=== PATIENT | male | born 1960 | race Caucasian/White ===

== ENCOUNTER 2021-12-25 18:21 | Emergency (ER) | payer SELFPAY ==
[2021-12-25 18:32] VITALS: BP 164/86; PULSE 79; RESP 16; TEMP 36.4; O2SAT 97
--- NOTE | 2021-12-25 18:39 | ED_ITS ---
HPI - Skin/Abscess/Foreign Bdy General: Chief complaint: Skin/Abscess/Foreign Body Stated complaint: fishing hook in upper right arm Time Seen by Provider: 12/25/21 18:39 History of Present Illness: 61-year-old male patient comes in today for complaints of fishhook in the right upper arm. Incident occurred this morning patient was fishing in a tournament and was unable to come in until tonight. Patient denies any significant complaints or concerns. Review of Systems General: Reports: 10 or more systems reviewed and unremarkable except in HPI and below Skin/Breast: Reports: other (Foreign body right upper arm) Physical Exam Const: COMMON NORMALS: alert Neck/C-Spine: COMMON NORMALS: full ROM Resp: COMMON NORMALS: normal respiratory effort Cardio: COMMON NORMALS: regular rate RATE: regular rate Extremity: RIGHT UPPER EXTREMITY: Yes upper arm (Right dorsal arm foreign body visualized) Neuro: SENSORIUM/ORIENTATION: Yes alert Skin: TRAUMA: puncture (Foreign body, fishhook, right upper arm) Procedures Foreign Body Removal Site: right and upper extremity Description of foreign body: fish hook Sedation/Analgesia: none Technique: removal with forceps and incision made to facilitate removal Confirmed by:: direct visualization Complications: none Neurovascular: normal distal pulse Course Vital Signs: Vital signs: Vital Signs Temperature 97.5 F L 12/25/21 18:32 Pulse Rate 79 12/25/21 18:32 Respiratory Rate 16 12/25/21 18:32 Blood Pressure 164/86 12/25/21 18:32 Pulse Oximetry 97 12/25/21 18:32 Oxygen Delivery Me thod 12/25/21 18:32 MDM - Skin/Abscess/Foreign Bdy Medicial Decision Making 61-year-old male patient comes in today for a fishhook in the right upper arm. On exam we note a fishhook cut off to the skin level of the right upper arm. Patient has normal range of motion and normal neurovascular check distally. Differential diagnosis includes need for prophylaxis tetanus, foreign body, concern for secondary infection. Patient refused tetanus. Rew was removed with forceps and incision made to facilitate removal. Patient tolerated well. Patient was written a prescription for cephalexin 1 capsule twice a day for 7 days to cover for secondary infection. Discharge Plan Discharge Patient Disposition: Home Clinical Impression: Fish hook in upper arm Condition: Stable Prescriptions: New cephalexin 500 mg capsule 500 mg PO BID 7 Days Qty: 14 0RF Discharge Orders: Discharge ED (Routine); Ordered 12/25/21 Ordered By: Jeffy Recinos Discharge Diet: Usual diet Discharge Activity: Increase activity as tolerated Patient Instructions: Puncture Wound (ED) Activity Restrictions/Additional Instructions: Keep wound clean and dry. Monitor site for signs of infection such as increased redness and swelling around it. Take antibiotic 1 capsule twice a day for 7 days. Follow-up with primary care for further instruction. Return to ER for new concerns. Coding Level of Care Code ED Attendant [facility]
== END 2021-12-25 18:55 | disposition home or self-care (01) ==
PROVIDERS: Emergency Provider Nurse Practitioner Family
DX: S41.131A Puncture wound without foreign body of right upper arm, initial encounter (principal); W26.8XXA Contact with other sharp object(s), not elsewhere classified, initial encounter
CPT/HCPCS: 10120; 99283